=== PATIENT | female | born 1990 | race Caucasian/White ===

== ENCOUNTER 2019-01-22 22:36 | Emergency (ER) | payer OTHER, MEDICAID ==
[~2019-01-22] VITALS: Ht 160 cm; Wt 63.5 kg
[2019-01-22 23:01] LABS: URINE BILIRUBIN NEGATIVE (Negative); URINE BLOOD TRACE (Negative); URINE CLARITY CLEAR; URINE COLOR YELLOW; URINE GLUCOSE-RANDOM NEGATIVE (Negative); URINE KETONES NEGATIVE (Negative); URINE LEUKOCYTES-REFLEX TRACE (Negative); URINE NITRITE-REFLEX NEGATIVE (Negative); URINE PROTEIN NEGATIVE (Negative); URINE SPECIFIC GRAVITY 1.025 (1.005-1.030); URINE UROBILINOGEN 0.2 E.U./dl (0.2-1.0)
[2019-01-22 23:09] LABS: CASTS None Seen /LPF (None Seen); MUCUS 4-6 Moderate strn/LPF (None Seen); SQUAMOUS 0-3 Few /LPF (0-3); URINE RBC 0-2 Rare /HPF (0-2); URINE WBC-REFLEX 0-5 Rare /HPF (0-5)
[2019-01-22 23:10] LABS: CRYSTALS None Seen /LPF (None Seen)
[2019-01-22 23:21] LABS: ABSOLUTE BASOPHILS 0.1 thou/uL (0.0-0.2); ABSOLUTE EOSINOPHILS 0.3 thou/uL (0.0-0.7); ABSOLUTE MONOCYTES 0.8 thou/uL (0.0-1.2); ABSOLUTE NEUTROPHILS 3.9 thou/uL (1.6-8.1); BASOPHILS 0.9 %; EOSINOPHILS 3.5 %; HEMATOCRIT 38.7 % (37.0-47.0); HEMOGLOBIN 13.2 gm/dL (12.0-15.0); MCH 29.5 pg (26.0-34.0); MCHC 34.2 g/dL (28.0-37.0); MCV 86.1 fL (80.0-100.0); MONOCYTES 9.4 %; MPV 8.8 fl. (7.2-11.1); NUCLEATED RBCS 0 /100WBC; PLATELET COUNT* 200 thou/uL (150-400); POLYS 49.2 %; RDW-CV 12.8 % (10.5-14.5)
[2019-01-22 23:28] LABS: CALCIUM 8.3 mg/dL (8.5-10.1); CREATININE 0.8 mg/dL (0.6-1.3); POTASSIUM 3.8 mmol/L (3.5-5.1)
[2019-01-22 23:38] LABS: ALBUMIN 3.3 g/dL (3.4-5.0); TOTAL PROTEIN 7.1 g/dL (6.4-8.2)
[2019-01-23] MEDS ORDERED: AUGMENTIN 875-1 EACH PO (00:55)
[2019-01-23] MEDS ORDERED: ZOFRAN ODT4 MG DISSOLVE (00:55)
[2019-01-23] MEDS ORDERED: NORCO 5-325 TA1 EAC1 PO (00:55)
[2019-01-23 01:11] VITALS: BP 96/55
== END 2019-01-23 01:12 | disposition home or self-care (01) ==
LOC: M.ERS 22:36
PROVIDERS: Emergency Medicine Emergency Medical Services
DX: K52.9 Noninfective gastroenteritis and colitis, unspecified (principal)

== ENCOUNTER 2019-08-02 19:17 | Emergency (ER) | payer OTHER, MEDICAID ==
[~2019-08-02] VITALS: Ht 160 cm; Wt 63.5 kg
[~2019-08-02 19:17] MED LIST: AUGMENTIN 875-1 EACH PO; NORCO 5-325 TA1 EAC1 PO; ZOFRAN ODT4 MG DISSOLVE
[2019-08-02 20:13] LABS: INFLUENZA A ANTIGEN Negative (Negative); INFLUENZA B ANTIGEN Negative (Negative)
[2019-08-02] MEDS ORDERED: ZOFRAN ODT4 MG PO (20:35)
[2019-08-02] MEDS ORDERED: TAMIFLU75 MG PO (20:35)
[2019-08-02 20:50] VITALS: BP 111/67
== END 2019-08-02 21:21 | disposition home or self-care (01) ==
LOC: M.ERS 19:17
PROVIDERS: Emergency Medicine
DX: J11.1 Influenza due to unidentified influenza virus with other respiratory manifestations (principal)

== ENCOUNTER 2020-05-09 22:06 | Emergency (ER) | payer OTHER, MEDICAID ==
[~2020-05-09] VITALS: Ht 160 cm; Wt 59.0 kg
[~2020-05-09 22:06] MED LIST changes: +TAMIFLU75 MG PO; +ZOFRAN ODT4 MG PO
[2020-05-09 22:12] VITALS: BP 125/73
[2020-05-09 22:43] LABS: URINE BILIRUBIN NEGATIVE (Negative); URINE BLOOD TRACE (Negative); URINE CLARITY CLEAR; URINE COLOR YELLOW; URINE GLUCOSE-RANDOM NEGATIVE (Negative); URINE KETONES 1+ (Negative); URINE LEUKOCYTES-REFLEX NEGATIVE (Negative); URINE NITRITE-REFLEX NEGATIVE (Negative); URINE PROTEIN NEGATIVE (Negative); URINE UROBILINOGEN 0.2 E.U./dl (0.2-1.0)
[2020-05-09] MEDS ORDERED: ZOFRAN ODT4 MG PO (23:02)
== END 2020-05-09 23:20 | disposition home or self-care (01) ==
LOC: M.ERS 22:06
PROVIDERS: Emergency Medicine
DX: U07.1 COVID-19 (principal)